=== PATIENT | female | born 2000 | race Caucasian/White ===

== ENCOUNTER 2022-05-16 08:44 | Emergency (ER) | payer MEDICAID ==
[~2022-05-16] VITALS: Ht 157.5 cm; Wt 101.0 kg
[2022-05-16 09:01] VITALS: TEMP 98.6
[2022-05-16] MEDS ORDERED: PEN-VEE K500 MG PO (09:44)
[2022-05-16] MEDS ORDERED: NORCO 325 MG-51 TAB PO (09:44)
[2022-05-16 09:57] VITALS: BP 148/83; PULSE 74
== END 2022-05-16 09:57 | disposition home or self-care (01) ==
LOC: COL.ER 08:44
DX: K02.9 Dental caries, unspecified (principal); Z28.310 Unvaccinated for COVID-19